=== PATIENT | male | born 1965 | race Caucasian/White ===

== ENCOUNTER 2022-09-18 12:24 | Inpatient (IN) | payer OTHER ==
[2022-09-18 13:40] VITALS: BMI 31.2
[2022-09-18] MEDS ORDERED: BENZOCAINE/MENTHOL (CHLORASEPTIC ) LOZENGE MM PRN (14:09)
[2022-09-18] MEDS ORDERED: BISMUTH SUBSALICYLATE 262 MG/15 ML BTL PO PRN (14:09)
[2022-09-18] MEDS ORDERED: NALOXONE HCL (KLOXXADO) 8 MG SPRAY NS PRN (14:09)
[2022-09-18] MEDS ORDERED: MAGNESIUM HYDROX 2400MG/30ML ORAL SUSPENSION 30 ML CUP PO PRN (14:09)
[2022-09-18] MEDS ORDERED: MAGNESIUM CITRATE 300 ML BOTTLE PO PRN (14:09)
[2022-09-18] MEDS ORDERED: LORazepam 1 MG TABLET PO PRN (14:09)
[2022-09-18] MEDS ORDERED: ONDANSETRON *ODT* 4 MG TABLET SL PRN (14:09)
[2022-09-18] MEDS ORDERED: DICYCLOMINE HCL 10 MG CAPSULE PO PRN (14:09)
[2022-09-18] MEDS ORDERED: IBUPROFEN 600 MG TABLET (FP) PO PRN (14:09)
[2022-09-18] MEDS ORDERED: LORazepam 2 MG TABLET PO ONE (14:09)
[2022-09-18] MEDS ORDERED: LOPERAMIDE HCL 2 MG CAPSULE PO PRN (14:09)
[2022-09-18] MEDS ORDERED: MAG HYDROX/AL HYDROX/SIMETH 30 ML UNIT-DOSE CUP PO PRN (14:09)
[2022-09-18] MEDS ORDERED: ACETAMINOPHEN 325 MG TABLET (FP) PO PRN ×2 (14:09)
[2022-09-18] MEDS: NICOTINE 21 MG/24 HOURS TOPICAL PATCH TD SCH (14:48)
[2022-09-18] MEDS: IBUPROFEN 400 MG TABLET (FP) PO PRN (14:49)
[2022-09-18] MEDS: METHOCARBAMOL 500 MG TABLET PO PRN ×2 (17:26→22:43)
[2022-09-18] MEDS: LORazepam 2 MG TABLET PO SCH ×2 (17:26→22:43)
[2022-09-18] MEDS: hydrOXYzine PAMOATE 25 MG CAPSULE (FP) PO PRN ×2 (17:26→22:43)
[2022-09-18] MEDS: PRENATAL VITAMINS W/ FOLIC ACID TABLET (FP) PO SCH (17:43)
[2022-09-18] MEDS: THIAMINE HCL 100 MG TABLET (FP) PO SCH (22:42)
[2022-09-18] MEDS: MELATONIN 5 MG TABLETS PO SCH (22:42)
[2022-09-19] MEDS: LORazepam 2 MG TABLET PO SCH ×4 (06:12→22:28)
[2022-09-19 09:57] LABS: HEMATOCRIT 45.6 % (35.4-49); HEMOGLOBIN 15.5 GM/dL (11.7-16.9); MCH 31.1 pg (25.7-33.7); MCHC 33.9 g/dl (32.0-35.9); MEAN CELL VOLUME 91.7 fl (80-96); MEAN PLT VOLUME 7.3 fl (7.5-11.1); PLATELET COUNT 257 10^3/uL (134-434); RBC 4.98 M/mm3 (4.00-5.60); RDW 14.5 % (11.9-15.9); WHITE BLOOD COUNT 6.2 K/mm3 (4.0-10.0)
[2022-09-19 10:20] LABS: ALBUMIN 3.6 g/dl (3.4-5.0)
[2022-09-19 10:21] LABS: BLOOD UREA NITROGEN 11.9 mg/dL (7-18)
[2022-09-19 10:22] LABS: CALCIUM 8.8 mg/dL (8.5-10.1); CREATININE 0.9 mg/dL (0.55-1.3)
[2022-09-19 10:23] LABS: TOT PROT 6.8 g/dl (6.4-8.2)
[2022-09-19 10:25] LABS: BILIRUBIN,TOTAL 1.7 mg/dL (0.2-1)
[2022-09-19] MEDS ORDERED: guaiFENesin 200 MG/10 ML 10 ML UNIT-DOSE CUPS PO PRN (10:27)
[2022-09-19] MEDS ORDERED: P-EPHED 60MG/TRIPROLIDI 2.5MG TABLET PO PRN (10:27)
[2022-09-19] MEDS: PRENATAL VITAMINS W/ FOLIC ACID TABLET (FP) PO SCH (10:54)
[2022-09-19] MEDS: BICTEGRAV/EMTRICIT/TENOFOV (BIKTARVY) 50-200-25 MG TABLET PO SCH (10:55)
[2022-09-19] MEDS: METHOCARBAMOL 500 MG TABLET PO PRN ×2 (10:57→17:20)
[2022-09-19] MEDS: ATENOLOL 25 MG TABLET (FP) PO SCH (11:06)
[2022-09-19] MEDS: NICOTINE 21 MG/24 HOURS TOPICAL PATCH TD SCH (11:10)
[2022-09-19] MEDS: CITALOPRAM HYDROBROMIDE 20 MG TABLET PO SCH (12:33)
[2022-09-19] MEDS: hydrOXYzine PAMOATE 25 MG CAPSULE (FP) PO PRN ×2 (17:19→22:28)
[2022-09-19 17:48] LABS: HIV INTERPRETATION PRESUMPTIVE POSITIVE (NEGATIVE)
[2022-09-19] MEDS: NICOTINE 10 MG CARTRIDGE (INHALER) IH PRN (19:30)
[2022-09-19] MEDS: IBUPROFEN 400 MG TABLET (FP) PO PRN (22:28)
[2022-09-19] MEDS: THIAMINE HCL 100 MG TABLET (FP) PO SCH (22:28)
[2022-09-19] MEDS: MELATONIN 5 MG TABLETS PO SCH (22:28)
[2022-09-19] MEDS: MIRTAZAPINE 30 MG TABLET PO SCH (22:29)
[2022-09-20] MEDS: LORazepam 1 MG TABLET PO SCH ×4 (06:17→23:21)
[2022-09-20] MEDS: CITALOPRAM HYDROBROMIDE 20 MG TABLET PO SCH (11:16)
[2022-09-20] MEDS: BICTEGRAV/EMTRICIT/TENOFOV (BIKTARVY) 50-200-25 MG TABLET PO SCH (11:16)
[2022-09-20] MEDS: METHOCARBAMOL 500 MG TABLET PO PRN (11:17)
[2022-09-20] MEDS: ATENOLOL 25 MG TABLET (FP) PO SCH (11:17)
[2022-09-20] MEDS: PRENATAL VITAMINS W/ FOLIC ACID TABLET (FP) PO SCH (11:17)
[2022-09-20] MEDS: NICOTINE 21 MG/24 HOURS TOPICAL PATCH TD SCH (11:18)
[2022-09-20] MEDS: IBUPROFEN 400 MG TABLET (FP) PO PRN (18:29)
[2022-09-20] MEDS: MIRTAZAPINE 30 MG TABLET PO SCH (23:21)
[2022-09-20] MEDS: MELATONIN 5 MG TABLETS PO SCH (23:21)
[2022-09-20] MEDS: THIAMINE HCL 100 MG TABLET (FP) PO SCH (23:22)
[2022-09-20] MEDS: NICOTINE 10 MG CARTRIDGE (INHALER) IH PRN (23:23)
[2022-09-21] MEDS ORDERED: LORazepam 0.5 MG TABLET PO PRN
[2022-09-21] MEDS: LORazepam 0.5 MG TABLET PO SCH ×4 (06:13→22:58)
[2022-09-21] MEDS: NICOTINE 21 MG/24 HOURS TOPICAL PATCH TD SCH (10:59)
[2022-09-21] MEDS: hydrOXYzine PAMOATE 25 MG CAPSULE (FP) PO PRN (10:59)
[2022-09-21] MEDS: ATENOLOL 25 MG TABLET (FP) PO SCH (10:59)
[2022-09-21] MEDS: PRENATAL VITAMINS W/ FOLIC ACID TABLET (FP) PO SCH (10:59)
[2022-09-21] MEDS: METHOCARBAMOL 500 MG TABLET PO PRN (10:59)
[2022-09-21] MEDS: CITALOPRAM HYDROBROMIDE 20 MG TABLET PO SCH (10:59)
[2022-09-21] MEDS: BICTEGRAV/EMTRICIT/TENOFOV (BIKTARVY) 50-200-25 MG TABLET PO SCH (10:59)
[2022-09-21] MEDS: LACTULOSE 20 GM/30 ML UDC (FOR ORAL USE ONLY) PO SCH ×2 (14:49→23:17)
[2022-09-21] MEDS: IBUPROFEN 400 MG TABLET (FP) PO PRN (20:09)
[2022-09-21] MEDS: MELATONIN 5 MG TABLETS PO SCH (22:57)
[2022-09-21] MEDS: THIAMINE HCL 100 MG TABLET (FP) PO SCH (22:57)
[2022-09-21] MEDS: MIRTAZAPINE 30 MG TABLET PO SCH (22:58)
[2022-09-22] MEDS ORDERED: LORazepam 0.5 MG TABLET PO ONE (05:00)
[2022-09-22] MEDS: LACTULOSE 20 GM/30 ML UDC (FOR ORAL USE ONLY) PO SCH ×3 (06:02→22:37)
[2022-09-22] MEDS: CITALOPRAM HYDROBROMIDE 20 MG TABLET PO SCH (09:05)
[2022-09-22] MEDS: BICTEGRAV/EMTRICIT/TENOFOV (BIKTARVY) 50-200-25 MG TABLET PO SCH (09:05)
[2022-09-22] MEDS: PRENATAL VITAMINS W/ FOLIC ACID TABLET (FP) PO SCH (09:06)
[2022-09-22] MEDS: NICOTINE 21 MG/24 HOURS TOPICAL PATCH TD SCH (09:06)
[2022-09-22] MEDS: ATENOLOL 25 MG TABLET (FP) PO SCH (09:07)
[2022-09-22 18:51] VITALS: RESP 18
[2022-09-22] MEDS: THIAMINE HCL 100 MG TABLET (FP) PO SCH (22:35)
[2022-09-22] MEDS: hydrOXYzine PAMOATE 25 MG CAPSULE (FP) PO PRN (22:35)
[2022-09-22] MEDS: MELATONIN 5 MG TABLETS PO SCH (22:35)
[2022-09-22] MEDS: MIRTAZAPINE 30 MG TABLET PO SCH (22:37)
[2022-09-23] MEDS: LACTULOSE 20 GM/30 ML UDC (FOR ORAL USE ONLY) PO SCH (06:01)
[2022-09-23 09:04] VITALS: BP 154/97; PULSE 77; TEMP 98.2
[2022-09-23] MEDS: BICTEGRAV/EMTRICIT/TENOFOV (BIKTARVY) 50-200-25 MG TABLET PO SCH (09:18)
[2022-09-23] MEDS: CITALOPRAM HYDROBROMIDE 20 MG TABLET PO SCH (09:19)
[2022-09-23] MEDS: PRENATAL VITAMINS W/ FOLIC ACID TABLET (FP) PO SCH (09:19)
[2022-09-23] MEDS: ATENOLOL 25 MG TABLET (FP) PO SCH (09:20)
[2022-09-23] MEDS: NICOTINE 21 MG/24 HOURS TOPICAL PATCH TD SCH (09:24)
== END 2022-09-23 11:20 | disposition home or self-care (01) | DRG 774 ==
LOC: YASAS 12:24 → Y6N 15:55
PROVIDERS: ADMIT Allergy & Immunology; ATTEND Surgery
PROC: HZ2ZZZZ Detoxification Services for Substance Abuse Treatment (ICD-10-PCS; principal; 2022-09-18)
DX: F10.230 Alcohol dependence with withdrawal, uncomplicated (principal); F14.20 Cocaine dependence, uncomplicated; F17.210 Nicotine dependence, cigarettes, uncomplicated; F10.24 Alcohol dependence with alcohol-induced mood disorder; F10.282 Alcohol dependence with alcohol-induced sleep disorder; U07.1 COVID-19; Z21 Asymptomatic human immunodeficiency virus [HIV] infection status; I10 Essential (primary) hypertension; F32.9 Major depressive disorder, single episode, unspecified; R79.89 Other specified abnormal findings of blood chemistry; Z86.19 Personal history of other infectious and parasitic diseases
CPT/HCPCS: 36415; 80053; 82140; 85027; 86593; 86780; 87389; C9803-CS; U0003; U0005

== ENCOUNTER 2023-02-12 12:49 | Inpatient (IN) | payer OTHER ==
[2023-02-12 14:42] VITALS: BMI 31.8
[2023-02-12] MEDS ORDERED: DICYCLOMINE HCL 10 MG CAPSULE PO PRN (15:01)
[2023-02-12] MEDS ORDERED: ONDANSETRON *ODT* 4 MG TABLET SL PRN (15:01)
[2023-02-12] MEDS ORDERED: BENZOCAINE/MENTHOL (CHLORASEPTIC ) LOZENGE MM PRN (15:01)
[2023-02-12] MEDS ORDERED: LORazepam 2 MG TABLET PO ONE (15:01)
[2023-02-12] MEDS ORDERED: guaiFENesin 600 MG TABLET.ER (FP) PO PRN (15:01)
[2023-02-12] MEDS ORDERED: LORazepam 1 MG TABLET PO PRN (15:01)
[2023-02-12] MEDS ORDERED: ACETAMINOPHEN 325 MG TABLET (FP) PO PRN (15:01)
[2023-02-12] MEDS ORDERED: IBUPROFEN 400 MG TABLET (FP) PO PRN (15:01)
[2023-02-12] MEDS ORDERED: LOPERAMIDE HCL 2 MG CAPSULE PO PRN (15:01)
[2023-02-12] MEDS ORDERED: BENZONATATE 200 MG CAPSULE PO PRN (15:01)
[2023-02-12] MEDS ORDERED: MAG HYDROX/AL HYDROX/SIMETH 30 ML UNIT-DOSE CUP PO PRN (15:01)
[2023-02-12] MEDS ORDERED: BISMUTH SUBSALICYLATE 524 MG/30 ML PO PRN (15:01)
[2023-02-12] MEDS ORDERED: POLYETHYLENE GLYCOL (HEALTHYLAX) 3350 17 GM PACKET PO PRN (15:01)
[2023-02-12] MEDS ORDERED: MAGNESIUM HYDROX 2400MG/30ML ORAL SUSPENSION 30 ML CUP PO PRN (15:01)
[2023-02-12] MEDS ORDERED: NALOXONE HCL 0.4 MG/ML VIAL IM PRN (15:01)
[2023-02-12] MEDS ORDERED: NALOXONE HCL (KLOXXADO) 8 MG SPRAY NS PRN (15:01)
[2023-02-12] MEDS ORDERED: LORazepam 2 MG TABLET ONE (15:20)
[2023-02-12] MEDS ORDERED: NICOTINE 21 MG/24 HOURS TOPICAL PATCH ONE (15:35)
[2023-02-12] MEDS ORDERED: PRENATAL VITAMINS W/ FOLIC ACID TABLET (FP) PO ONE (15:36)
[2023-02-12] MEDS: PRENATAL VITAMINS W/ FOLIC ACID TABLET (FP) PO SCH (15:37)
[2023-02-12] MEDS: NICOTINE 21 MG/24 HOURS TOPICAL PATCH TD SCH (15:37)
[2023-02-12] MEDS: LORazepam 2 MG TABLET PO SCH ×2 (17:27→22:49)
[2023-02-12] MEDS: THIAMINE HCL 100 MG TABLET (FP) PO SCH (22:49)
[2023-02-12] MEDS: MELATONIN 5 MG TABLETS PO SCH (22:49)
[2023-02-12] MEDS: MIRTAZAPINE 15 MG TABLET (FP) PO SCH (22:50)
[2023-02-13] MEDS: IBUPROFEN 600 MG TABLET (FP) PO PRN (00:57)
[2023-02-13] MEDS: LORazepam 2 MG TABLET PO SCH ×4 (05:36→22:12)
[2023-02-13] MEDS: PRENATAL VITAMINS W/ FOLIC ACID TABLET (FP) PO SCH (10:44)
[2023-02-13] MEDS: hydrOXYzine PAMOATE 25 MG CAPSULE (FP) PO PRN ×2 (10:44→22:12)
[2023-02-13] MEDS: CITALOPRAM HYDROBROMIDE 20 MG TABLET PO SCH (10:44)
[2023-02-13] MEDS: BICTEGRAV/EMTRICIT/TENOFOV (BIKTARVY) 50-200-25 MG TABLET PO SCH (10:44)
[2023-02-13] MEDS: METHOCARBAMOL 500 MG TABLET PO PRN (10:44)
[2023-02-13] MEDS: NICOTINE 21 MG/24 HOURS TOPICAL PATCH TD SCH (10:45)
[2023-02-13] MEDS: ATENOLOL 25 MG TABLET (FP) PO SCH (10:45)
[2023-02-13 10:51] LABS: HEMATOCRIT 42.2 % (35.4-49); HEMOGLOBIN 14.3 GM/dL (11.7-16.9); MCH 31.7 pg (25.7-33.7); MCHC 33.8 g/dl (32.0-35.9); MEAN CELL VOLUME 93.9 fl (80-96); MEAN PLT VOLUME 7.9 fl (7.5-11.1); PLATELET COUNT 261 10^3/uL (134-434); RBC 4.49 M/mm3 (4.00-5.60); RDW 14.5 % (11.9-15.9); WHITE BLOOD COUNT 7.9 K/mm3 (4.0-10.0)
[2023-02-13 11:03] LABS: BLOOD UREA NITROGEN 10.5 mg/dL (7-18); CALCIUM 8.6 mg/dL (8.5-10.1)
[2023-02-13 11:04] LABS: ALBUMIN 3.2 g/dl (3.4-5.0)
[2023-02-13 11:08] LABS: TOT PROT 6.1 g/dl (6.4-8.2)
[2023-02-13 11:10] LABS: BILIRUBIN,TOTAL 1.6 mg/dL (0.2-1)
[2023-02-13] MEDS ORDERED: POTASSIUM CHLORIDE ORAL LIQUID 20 MEQ/15 ML PO ONE (14:30)
[2023-02-13] MEDS: NICOTINE 10 MG CARTRIDGE (INHALER) IH PRN ×2 (17:31→22:16)
[2023-02-13] MEDS: MIRTAZAPINE 15 MG TABLET (FP) PO SCH (22:12)
[2023-02-13] MEDS: THIAMINE HCL 100 MG TABLET (FP) PO SCH (22:12)
[2023-02-13] MEDS: MELATONIN 5 MG TABLETS PO SCH (22:12)
[2023-02-13] MEDS: POTASSIUM CHLORIDE ORAL LIQUID 20 MEQ/15 ML PO SCH (22:14)
[2023-02-13 22:43] LABS: EPI CELLS 13 /uL (0-25.1); HYALINE CASTS 2 /uL (0-3.1); PH,URINE 7.5 (5.0-8.0); URINE APPEARANCE CLEAR; URINE BACTERIA 22 /uL (0-1359); URINE BILIRUBIN NEGATIVE (NEGATIVE); URINE COLOR YELLOW; URINE GLUCOSE (UA) NEGATIVE (NEGATIVE); URINE KETONE TRACE (NEGATIVE); URINE LEUK ESTERASE NEGATIVE (NEGATIVE); URINE NITRITE NEGATIVE (NEGATIVE); URINE PROTEIN 1+ (NEGATIVE); URINE RBC 91 /uL (0-23.9); URINE WBC 23 /uL (0-25.8)
[2023-02-14] MEDS: LORazepam 1 MG TABLET PO SCH ×4 (05:21→22:24)
[2023-02-14 06:21] VITALS: RESP 18
[2023-02-14] MEDS: BICTEGRAV/EMTRICIT/TENOFOV (BIKTARVY) 50-200-25 MG TABLET PO SCH (08:21)
[2023-02-14] MEDS: ATENOLOL 25 MG TABLET (FP) PO SCH (10:09)
[2023-02-14] MEDS: POTASSIUM CHLORIDE ORAL LIQUID 20 MEQ/15 ML PO SCH ×2 (10:09→22:23)
[2023-02-14] MEDS: CITALOPRAM HYDROBROMIDE 20 MG TABLET PO SCH (10:09)
[2023-02-14] MEDS: hydrOXYzine PAMOATE 25 MG CAPSULE (FP) PO PRN (10:09)
[2023-02-14] MEDS: METHOCARBAMOL 500 MG TABLET PO PRN (10:09)
[2023-02-14] MEDS: PRENATAL VITAMINS W/ FOLIC ACID TABLET (FP) PO SCH (10:10)
[2023-02-14] MEDS: NICOTINE 21 MG/24 HOURS TOPICAL PATCH TD SCH (10:10)
[2023-02-14] MEDS: IBUPROFEN 600 MG TABLET (FP) PO PRN (12:37)
[2023-02-14] MEDS ORDERED: ATENOLOL 25 MG TABLET (FP) PO ONE (14:47)
[2023-02-14] MEDS: MIRTAZAPINE 15 MG TABLET (FP) PO SCH (22:24)
[2023-02-14] MEDS: THIAMINE HCL 100 MG TABLET (FP) PO SCH (22:25)
[2023-02-14] MEDS: MELATONIN 5 MG TABLETS PO SCH (22:26)
[2023-02-15] MEDS ORDERED: LORazepam 0.5 MG TABLET PO PRN
[2023-02-15] MEDS: LORazepam 0.5 MG TABLET PO SCH ×4 (05:28→22:04)
[2023-02-15] MEDS: BICTEGRAV/EMTRICIT/TENOFOV (BIKTARVY) 50-200-25 MG TABLET PO SCH (07:16)
[2023-02-15] MEDS: hydrOXYzine PAMOATE 25 MG CAPSULE (FP) PO PRN (10:17)
[2023-02-15] MEDS: CITALOPRAM HYDROBROMIDE 20 MG TABLET PO SCH (10:17)
[2023-02-15] MEDS: PRENATAL VITAMINS W/ FOLIC ACID TABLET (FP) PO SCH (10:17)
[2023-02-15] MEDS: POTASSIUM CHLORIDE ORAL LIQUID 20 MEQ/15 ML PO SCH (10:18)
[2023-02-15] MEDS: ATENOLOL 25 MG TABLET (FP) PO SCH (10:18)
[2023-02-15] MEDS: METHOCARBAMOL 500 MG TABLET PO PRN (10:18)
[2023-02-15] MEDS: NICOTINE 21 MG/24 HOURS TOPICAL PATCH TD SCH (10:22)
[2023-02-15] MEDS: NICOTINE 10 MG CARTRIDGE (INHALER) IH PRN ×2 (12:35→17:32)
[2023-02-15] MEDS: THIAMINE HCL 100 MG TABLET (FP) PO SCH (22:05)
[2023-02-15] MEDS: MIRTAZAPINE 15 MG TABLET (FP) PO SCH (22:05)
[2023-02-15] MEDS: MELATONIN 5 MG TABLETS PO SCH (22:05)
[2023-02-16] MEDS ORDERED: LORazepam 0.5 MG TABLET PO ONE (05:00)
[2023-02-16] MEDS: BICTEGRAV/EMTRICIT/TENOFOV (BIKTARVY) 50-200-25 MG TABLET PO SCH (07:02)
[2023-02-16 09:10] VITALS: BP 112/73; PULSE 61; TEMP 98.4
== END 2023-02-16 09:37 | disposition home or self-care (01) | DRG 774 ==
LOC: YASAS 12:49 → Y6N 15:36
PROVIDERS: ADMIT Allergy & Immunology; ATTEND Surgery
PROC: HZ2ZZZZ Detoxification Services for Substance Abuse Treatment (ICD-10-PCS; principal; 2023-02-12)
DX: F10.230 Alcohol dependence with withdrawal, uncomplicated (principal); F14.20 Cocaine dependence, uncomplicated; F17.210 Nicotine dependence, cigarettes, uncomplicated; Z21 Asymptomatic human immunodeficiency virus [HIV] infection status; I10 Essential (primary) hypertension; Z86.19 Personal history of other infectious and parasitic diseases; Z86.59 Personal history of other mental and behavioral disorders; Z99.89 Dependence on other enabling machines and devices
CPT/HCPCS: 36415; 80053; 81003; 82247; 84132; 85027; 86593; 86780; 87811; C9803-CS; U0003; U0005